=== PATIENT | male | born 1955 | race Caucasian/White ===

== ENCOUNTER 2021-09-24 11:16 | Emergency (ER) | payer OTHER ==
[2021-09-24] MEDS ORDERED: Acetaminophen/HYDROcodone 325-5 MG Tab PO ONE (12:03)
[2021-09-24 12:53] LABS: POTASSIUM,K 4.6 mmol/L (3.5-5.1)
== END 2021-09-24 13:23 | disposition home or self-care (01) ==
LOC: MW.ED 11:16
DX: S91.302A Unspecified open wound, left foot, initial encounter (principal); R73.9 Hyperglycemia, unspecified; W20.8XXA Other cause of strike by thrown, projected or falling object, initial encounter
CPT/HCPCS: 36415; 80053; 83605; 85025; 87040; 99283; A9270

== ENCOUNTER 2021-10-10 10:56 | Emergency (ER) | payer MEDICAID, OTHER ==
[2021-10-10 12:06] LABS: CARBON DIOXIDE,CO2 23.1 mmol/L (21.0-32.0); POTASSIUM,K 4.1 mmol/L (3.5-5.1)
== END 2021-10-10 13:00 | disposition home or self-care (01) ==
LOC: MW.ED 10:56
DX: L97.329 Non-pressure chronic ulcer of left ankle with unspecified severity (principal); R73.9 Hyperglycemia, unspecified; Z79.899 Other long term (current) drug therapy
CPT/HCPCS: 36415; 80053; 85025; 85652; 86140; 99283

== ENCOUNTER 2021-10-18 16:38 | Inpatient (IN) | payer MEDICAID, OTHER ==
[2021-10-18] MEDS ORDERED: Sodium Chloride 0.9% 2.5 ML Syringe FLUSH PRN (16:45)
[2021-10-18] MEDS ORDERED: Sodium Chloride 0.9% 10 ML Syringe FLUSH PRN (16:45)
[2021-10-18 18:40] LABS: BLOOD UREA NITROGEN,BUN 36 mg/dL (7.0-18.0); CARBON DIOXIDE,CO2 27.2 mmol/L (21.0-32.0); CHLORIDE,CL 88 mmol/L (98-107); GLUCOSE RANDOM 135 mg/dL (74-106); POTASSIUM,K 3.7 mmol/L (3.5-5.1); SODIUM,NA 126 mmol/L (136-148)
[2021-10-18 18:41] LABS: ESTIMATED GFR 75 mL/min (>60)
[2021-10-18] MEDS ORDERED: Sodium Chloride 0.9% 1,000 ML IV SCH (19:45)
[2021-10-18] MEDS ORDERED: Sodium Chloride 0.9% 500 ML IV SCH (20:15)
[2021-10-18] MEDS ORDERED: VANCOmycin 1.75 GM/350 ML 1.75 GM in Premix Bag 1 BAG IV ONE (20:45)
[2021-10-18] MEDS ORDERED: Glucagon,Human Recombinant 1 MG Vial IM PRN (20:46)
[2021-10-18] MEDS ORDERED: 50% Dextrose in Water 50 ML Syringe IVPUSH PRN (20:46)
[2021-10-18] MEDS: Sodium Chloride 0.9% 1,000 ML IV SCH (22:57)
[2021-10-18] MEDS: Piperacillin/Tazobactam 3.375 GM in Sodium Chloride 0.9% 50 ML IV SCH (23:00)
[2021-10-18] MEDS: Acetaminophen 325 MG Tab PO PRN (23:06)
[2021-10-18] MEDS ORDERED: Sodium Chloride 0.9% 500 ML IV ONE (23:45)
[2021-10-19 01:16] LABS: CARBON DIOXIDE,CO2 29.5 mmol/L (21.0-32.0)
[2021-10-19] MEDS: Piperacillin/Tazobactam 3.375 GM in Sodium Chloride 0.9% 50 ML IV SCH ×4 (03:02→20:16)
[2021-10-19] MEDS: Sodium Chloride 0.9% 1,000 ML IV SCH ×2 (06:10→19:21)
[2021-10-19] MEDS: Insulin Aspart 100 Units/ML 3 ML Pen SUBCUT SCH ×3 (06:30→19:15)
[2021-10-19 06:53] LABS: CARBON DIOXIDE,CO2 27.5 mmol/L (21.0-32.0); POTASSIUM,K 3.3 mmol/L (3.5-5.1)
[2021-10-19] MEDS: Acetaminophen 325 MG Tab PO PRN (06:56)
[2021-10-19 07:04] LABS: HEMOGLOBIN A1C 9.4 %
[2021-10-19] MEDS ORDERED: Potassium Chloride 20 MEQ Tab.ER PO ONE (08:34)
[2021-10-19] MEDS ORDERED: HYDROmorphone 1 MG/ML Syringe IVPUSH PRN (09:58)
[2021-10-19] MEDS ORDERED: Albuterol 0.083% 2.5 MG/3 ML Neb Soln NEB PRN (09:58)
[2021-10-19] MEDS ORDERED: Metoclopramide 10 MG/2 ML SDV IVPUSH PRN (09:58)
[2021-10-19] MEDS ORDERED: Morphine 4 MG/ML VIAL IVPUSH PRN (09:58)
[2021-10-19] MEDS ORDERED: fentaNYL 50 MCG/ML SDV IVPUSH PRN (09:58)
[2021-10-19] MEDS ORDERED: Naloxone 0.4 MG/ML SDV IVPUSH PRN (09:58)
[2021-10-19] MEDS ORDERED: Ondansetron 4 MG/2 ML SDV IVPUSH PRN (09:58)
[2021-10-19] MEDS ORDERED: fentaNYL 100 MCG/2 ML SDV ONE ×2 (11:31→13:16)
[2021-10-19] MEDS ORDERED: Propofol 200 MG/20 ML SDV ONE ×2 (11:31→14:55)
[2021-10-19] MEDS ORDERED: Lidocaine 2% 5 ML SDV ONE (11:31)
[2021-10-19] MEDS ORDERED: Ondansetron 4 MG/2 ML SDV ONE ×2 (11:31→13:16)
[2021-10-19] MEDS ORDERED: Metoclopramide 10 MG/2 ML SDV ONE (13:16)
[2021-10-19] MEDS ORDERED: Famotidine 20 MG/2 ML SDV ONE (13:54)
[2021-10-19] MEDS: oxyCODONE 5 MG Tab PO PRN (20:16)
[2021-10-19 22:40] LABS: CARBON DIOXIDE,CO2 27.8 mmol/L (21.0-32.0)
[2021-10-20] MEDS: Piperacillin/Tazobactam 3.375 GM in Sodium Chloride 0.9% 50 ML IV SCH ×2 (02:21→08:52)
[2021-10-20] MEDS: oxyCODONE 5 MG Tab PO PRN ×2 (03:54→11:47)
[2021-10-20] MEDS: Sodium Chloride 0.9% 1,000 ML IV SCH ×2 (06:30→06:52)
[2021-10-20] MEDS: Insulin Aspart 100 Units/ML 3 ML Pen SUBCUT SCH ×2 (06:30→11:48)
[2021-10-20 06:34] LABS: CARBON DIOXIDE,CO2 24.8 mmol/L (21.0-32.0); POTASSIUM,K 3.7 mmol/L (3.5-5.1)
[2021-10-20] MEDS: Acetaminophen 325 MG Tab PO PRN (09:03)
[2021-10-20] MEDS ORDERED: VANCOmycin 1.25 GM/250 ML 1.25 GM in Premix Bag 1 BAG IV SCH (12:00)
== END 2021-10-20 11:55 | DRG 982 ==
LOC: MW.ED 16:38 → MW.MS 19:43
PROVIDERS: ADMIT Internal Medicine; ATTEND Internal Medicine
PROC: 0KDW0ZZ Extraction of Left Foot Muscle, Open Approach (ICD-10-PCS; principal; 2021-10-19)
DX: E11.69 Type 2 diabetes mellitus with other specified complication (principal); E87.1 Hypo-osmolality and hyponatremia; M86.8X6 Other osteomyelitis, lower leg; E11.621 Type 2 diabetes mellitus with foot ulcer; L97.529 Non-pressure chronic ulcer of other part of left foot with unspecified severity; M66.9 Spontaneous rupture of unspecified tendon; L08.9 Local infection of the skin and subcutaneous tissue, unspecified; B87.9 Myiasis, unspecified; I10 Essential (primary) hypertension; E86.0 Dehydration; Z86.16 Personal history of COVID-19; Z86.19 Personal history of other infectious and parasitic diseases; Z79.84 Long term (current) use of oral hypoglycemic drugs; Z79.899 Other long term (current) drug therapy; Z98.49 Cataract extraction status, unspecified eye; Z20.822 Contact with and (suspected) exposure to COVID-19; E87.6 Hypokalemia; E11.65 Type 2 diabetes mellitus with hyperglycemia
CPT/HCPCS: 00400; 36415; 73630-26-LT; 73630-LT; 80048; 80053; 80202; 82550; 82947; 83036; 83605; 83735; 83930; 85025; 85652; 86140; 87040; 87070; 87075; 87077; 87186; 87205; 99222; 99232; 99239; 99285; A9270-GY; J2405; J2543; J2704; J2765; J3010; J3370; J3490; J7030; J7040; J7050; U0002